=== PATIENT | male | born 2000 | race Caucasian/White ===

== ENCOUNTER → 2018-02-09 | Outpatient (CLI) | payer OTHER ==
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
== END ==
LOC: RAD 13:23
PROVIDERS: ATTEND Nurse Practitioner Family
DX: R07.81 Pleurodynia (principal); M54.9 Dorsalgia, unspecified; V89.2XXA Person injured in unspecified motor-vehicle accident, traffic, initial encounter
CPT/HCPCS: 71101; 72072

== ENCOUNTER → 2021-04-21 | Outpatient (CLI) | payer BC, OTHER ==
--- NOTE | 2021-04-21 16:02 | Diagnostic Imaging Report ---
INDICATION: Shoulder pain. EXAMINATION: Right shoulder, 04/21/2021. COMPARISON: 04/01/2012. FINDINGS: Three views of the shoulder. There is no evidence for an acute fracture or dislocation. The joint spaces are well maintained. There is no significant soft tissue swelling. IMPRESSION: No acute process. Dictated by: Dictated on workstation # [id number]
== END ==
LOC: RAD 13:23
PROVIDERS: ATTEND Physician Assistant
DX: M25.511 Pain in right shoulder (principal); L00-L99 Diseases of the skin and subcutaneous tissue
CPT/HCPCS: 73030